=== PATIENT | female | born 1955 | race Caucasian/White ===

== ENCOUNTER 2025-07-15 08:45 | Outpatient (AMB) | payer BC, SELFPAY ==
--- NOTE | 2025-07-15 08:47 | A.OFFPC_ITS ---
Vital Signs 07/15/25 08:54 07/15/25 09:10 Height 5 ft 2 in Weight 169 lb BMI 30.9 BP 176/82 H 158/82 H Blood Pressure Location Lt brachial Lt brachial Position Sitting Respiration 18 Pulse 78 Pulse Source Pulse Oximeter Temp 97.6 F Temp Source Temporal Artery Scan Pulse Oximetry (%) 95 Oxygen Delivery Method Room Air Intake Visit Reasons: Re-establish care, diabetes Personnel Scheduler Required: No Accompanied by: Self / Same As Patient Allergies No Known Allergies Allergy (Verified 07/15/25 08:47) Medication List - Last Reconciled 07/15/25 by Vanesa Vilchis MD ascorbic acid (vitamin C) mg PO cholecalciferol (vitamin D3) mcg PO empagliflozin (Jardiance) 25 mg PO DAILY insulin glargine (Basaglar KwikPen U-100 Insulin) units subcut multivitamin 1 tab PO DAILY Tobacco use date assessed: 07/15/25 Fall risk assessment: No Falls in past year Last assessed Fall Risk: 07/15/25 Dental Screening Dental Screen Date: 07/15/25 Did you have a dental visit in the last 12 months?: Yes Did you have a dental problem in the last 6 months where you did not have access to dental care?: No Was dental information given to patient?: Patient has dentist HPI HPI Comments History of Present Illness Details The patient is a 70 year old female presenting with a re-establishment of care and diabetes follow-up. Diabetes Mellitus: The patient reports that her previous provider prescribed Novolin 70/30 at 10 units twice a day, which resulted in morning blood glucose levels over 200. She was then switched back to Basaglar, and her current dose is 50 units. Her last hemoglobin A1c in May was 9.7%. Hypertension: The patient reports home blood pressure readings in the 130s, with a maximum of 140. Aortic stenosis murmur: The patient has a known history of a heart murmur and reports occasional sensations of her heart skipping a beat, but denies chest pain or shortness of breath. Vitamin D deficiency: She is currently taking vitamin D supplements. [facility] Medical History (Updated 07/16/25 @ 08:36 by Vanesa Vilchis MD) Routine medical exam Aortic stenosis Type 2 diabetes mellitus in patient with obesity Primary hypertension Surgical History (Updated 07/15/25 @ 08:22 by Vanesa Vilchis MD) H/O hernia repair H/O tubal ligation History of colonoscopy (~04/17/21) Social History Housing: House Patient Tobacco Use Status: Never used Tobacco e-Cigarette/Vaping Use: Never Used service: No Current occupational status: retired Questionnaire PHQ-9 Over the last 2 weeks, how often have you been bothered by any of the following problems? 1. Little interest or pleasure in doing things: not at all 2. Feeling down, depressed, or hopeless: not at all 3. Trouble falling or staying asleep, or sleeping too much: not at all 4. Feeling tired or having little energy: not at all 5. Poor appetite or overeating: not at all 6. Feeling bad about yourself - or that you are a failure or have let yourself or your family down: not at all 7. Trouble concentrating on things, such as reading the newspaper or watching television: not at all 8. Moving or speaking so slowly that other people could have noticed. Or the opposite - being so fidgety or restless that you have been moving around a lot more than usual: not at all 9. Thoughts that you would be better off or of hurting yourself in some way: not at all Total score: 0 Depression Screening Interpretation: Negative Depression Screening Done: Yes Source: Developed by Drs. Matteo Avendaño, Renetta Begum, Tmo Lopez and colleagues, with an educational delta from [employer]. AUDIT C Alcohol Use Questionnaire (AUDIT-C) 1. How often do you have a drink containing alcohol?: Never 3. How often do you have six or more drinks on one occasion?: Never Total Score: 0 Review of Systems Narrative Review of Systems - Constitutional: Denies feeling more tired than usual. - Cardiovascular: Reports occasional palpitations. Denies chest pain. - Respiratory: Denies shortness of breath. - Psychiatric: The patient denies depression and endorses a positive attitude. Physical exam (Primary Care) Vital Signs: Last Vital Signs Temp 97.6 F 07/15/25 08:54 Pulse 78 07/15/25 08:54 Resp 18 07/15/25 08:54 BP 176/82 H 07/15/25 08:54 Pulse Ox 95 07/15/25 08:54 Oxygen Delivery Method Room Air 07/15/25 08:54 BMI result Body Mass Index 30.9 Tobacco/Smoking Status: Tobacco use Status Tobacco use date assessed 07/15/25 07/15/25 08:49 Patient Tobacco Use Status Never used Tobacco 07/15/25 08:57 e-Cigarette/Vaping Use Never Used 07/15/25 08:57 PHQ-9: PHQ-9 Score PHQ-9: Total score 0 07/15/25 09:35 Depression Screening Interpretation: Negative Narrative Physical Exam - Vitals: Repeat blood pressure is 158/82 mmHg. - Cardiovascular: Regular rhythm. A soft murmur is audible at the base of the heart with radiation to carotids - Pulmonary: Lungs are clear to auscultation bilaterally. - Abd: soft non tender, non distended, + BS - Extremities: no edema bilaterally Coding Level of Care Code Est Pt Level 4 (19099) Add On Problem Visit Only Diagnoses Primary hypertension I10 Nonrheumatic aortic valve stenosis I35.0 Cardiac valve disease etiology: nonrheumatic Type 2 diabetes mellitus in patient with obesity E11.9; E66.9 Assessment & Plan Assessment & Plan (1) Primary hypertension: Code(s): I10 - Essential (primary) hypertension Category: Medical (2) Aortic stenosis: Code(s): I35.0 - Nonrheumatic aortic (valve) stenosis Category: Medical Qualifiers: Cardiac valve disease etiology: nonrheumatic Qualified Code(s): I35.0 - Nonrheumatic aortic (valve) stenosis (3) Type 2 diabetes mellitus in patient with obesity: Code(s): E11.9 - Type 2 diabetes mellitus without complications; E66.9 - Obesity, unspecified Category: Medical Plan Assessment and Plan 1. Type 2 Diabetes Mellitus - The patient's A1c was elevated at 9.7% in May. - She is currently on 50 units of Basaglar. - A lab order will be placed for a fasting lab draw in August to recheck her hemoglobin A1c, cholesterol panel, thyroid panel, and a urine test for microalbuminuria. 2. Hypertension - The patient's home blood pressures are in the 130s-140s. - In-office blood pressure was 158/82 mmHg. - Will continue to monitor. 3. Aortic stenosis Heart Murmur - The patient has a known murmur. - She was advised to report any increased chest pain, breathing difficulty, or fatigue, which would prompt a repeat echocardiogram. 4. Health Maintenance - A wellness visit was completed in May 2025 at office she transferred from. - Her next colonoscopy is due in 2025. Pt is hesitant. - Will review the need for ultrasounds of the liver, pancreas, and thyroid after obtaining past records. Has history of cysts. - A lab order will be placed for a blood type test as requested by the patient, to be done with other labs in August. Plan - A lab order will be placed for August for a fasting lab draw including hemoglobin A1c, cholesterol panel, thyroid panel, urine microalbumin - The patient was advised to monitor for increased chest pain, shortness of breath, or fatigue, and to report these symptoms - Medical records from the patient's previous providers will be requested after she signed a release form. - The need for future ultrasounds of the liver, pancreas, and thyroid will be assessed after reviewing past records. - Will discuss colonoscopy at the October follow-up visit. Patient Instructions - Please go to the lab in August to have your blood and urine tests done. - You must fast (no food or drink, except for water) for 8 to 10 hours before your lab tests. - Continue taking your current medications, including 50 units of Basaglar insulin. - Continue jardiance Orders: Orders Lipid Panel 4 Weeks E11.9 - Type 2 diabetes mellitus without complications, E66.9 - Obesity, unspecified, I10 - Essential (primary) hypertension Basic Metabolic Panel 07/15/25 E11.9 - Type 2 diabetes mellitus without complications, E66.9 - Obesity, unspecified, I10 - Essential (primary) h ypertension TSH reflex Free T4 07/15/25 E11.9 - Type 2 diabetes mellitus without complications, E66.9 - Obesity, unspecified, I10 - Essential (primary) hypertension, I35.0 - Nonrheumatic aortic (valve) stenosis Hemoglobin A1c 07/15/25 E11.9 - Type 2 diabetes mellitus without complications, E66.9 - Obesity, unspecified, I10 - Essential (primary) hypertension Microalbumin, Random (w Creat) 07/15/25 E11.9 - Type 2 diabetes mellitus without complications, E66.9 - Obesity, unspecified, I10 - Essential (primary) hypertension ABO RH Type 07/15/25 E11.9 - Type 2 diabetes mellitus without complications, E66.9 - Obesity, unspecified, I35.0 - Nonrheumatic aortic (valve) stenosis, Z00.00 - Encounter for general adult medical examination without abnormal findings Medications: New empagliflozin (Jardiance) 25 mg PO DAILY 90 tabs 3RF
[2025-07-15 08:54] VITALS: BP 176/82; PULSE 78; RESP 18; TEMP 36.4; O2SAT 95; BMI 30.9
[2025-07-15 09:10] VITALS: BP 158/82
== END 2025-07-15 09:48 | disposition home or self-care (01) ==
LOC: HO.HMCHD 08:46
PROVIDERS: PCP Internal Medicine; Visit Provider Internal Medicine
DX: I10 Essential (primary) hypertension (principal); I35.0 Nonrheumatic aortic (valve) stenosis; E11.9 Type 2 diabetes mellitus without complications; E66.9 Obesity, unspecified